=== PATIENT | male | born 1985 | race Caucasian/White ===

== ENCOUNTER 2017-07-17 05:16 | Emergency (ER) | payer OTHER ==
[~2017-07-17] VITALS: Ht 162.6 cm; Wt 79.4 kg
[2017-07-17] MEDS ORDERED: SERTRALINE HCL50 MG PO (05:27)
[2017-07-17] MEDS ORDERED: HYDROXYZINE HCL25 M1 PO (05:28)
[2017-07-17 05:33] LABS: HEMATOCRIT 48.6 % (42.0-52.0); HEMOGLOBIN 16.9 gm/dL (14.0-18.0); MCH 32.1 pg (26.0-34.0); MCHC 34.8 g/dL (28.0-37.0); MCV 92.1 fL (80.0-100.0); MPV 7.5 fl. (7.2-11.1); NUCLEATED RBCS 0 /100WBC; PLATELET COUNT* 234 thou/uL (150-400); RBC 5.28 mil/uL (4.50-6.00); RDW-CV 13.3 % (10.5-14.5); WBC 10.9 thou/uL (4.0-11.0)
[2017-07-17 06:10] LABS: CALCIUM 8.5 mg/dL (8.5-10.1); CREATININE 1.2 mg/dL (0.6-1.3); POTASSIUM 4.3 mmol/L (3.5-5.1)
[2017-07-17 06:25] LABS: TOTAL BILIRUBIN 0.8 mg/dL (<0.1-1.0); TOTAL PROTEIN 7.3 g/dL (6.4-8.2)
[2017-07-17 06:37] LABS: ABSOLUTE EOSINOPHILS 0.2 thou/uL (0.0-0.7); ABSOLUTE LYMPHOCYTES 0.7 thou/uL (0.8-5.3); ABSOLUTE MONOCYTES 0.2 thou/uL (0.0-1.2); ABSOLUTE NEUTROPHILS 9.8 thou/uL (1.6-8.1); ANISOCYTOSIS 1+; PLATELET ESTIMATE ADEQUATE; POIKILOCYTOSIS 1+
[2017-07-17] MEDS ORDERED: ZOFRAN ODT4 MG PO (06:48)
[2017-07-17 07:25] VITALS: BP 136/63
== END 2017-07-17 07:26 | disposition home or self-care (01) ==
LOC: M.ERS 05:16
PROVIDERS: Emergency Medicine
DX: R11.2 Nausea with vomiting, unspecified (principal); F17.210 Nicotine dependence, cigarettes, uncomplicated

== ENCOUNTER → 2019-05-16 | Outpatient (CLI) | payer OTHER ==
[~2019-05-16] MED LIST: HYDROXYZINE HCL25 M1 PO; SERTRALINE HCL50 MG PO; ZOFRAN ODT4 MG PO
[2019-05-16 14:04] LABS: AMYLASE 84 U/L (25-115); LIPASE 308 U/L (73-393)
== END ==
LOC: M.LAB 13:41
PROVIDERS: Orthopaedic Surgery
DX: K86.1 Other chronic pancreatitis (principal)